=== PATIENT | female | born 1980 | race Caucasian/White ===

== ENCOUNTER 2018-09-17 12:38 | Emergency (ER) | payer OTHER ==
[~2018-09-17] VITALS: Ht 162.6 cm; Wt 66.7 kg
[2018-09-17 12:48] VITALS: BP 130/84; Ht 162.6 cm; Wt 66.7 kg
== END 2018-09-17 13:41 | disposition home or self-care (01) ==
LOC: ED 12:38
DX: R51 Headache (principal); H53.8 Other visual disturbances; R42 Dizziness and giddiness; Z98.890 Other specified postprocedural states

== ENCOUNTER 2019-11-18 16:27 | Emergency (ER) | payer OTHER, SELFPAY ==
[~2019-11-18] VITALS: Ht 162.6 cm; Wt 63.5 kg
[2019-11-18 16:36] VITALS: Ht 162.6 cm; Wt 63.5 kg
[2019-11-18 17:09] VITALS: BP 141/94
== END 2019-11-18 17:09 | disposition home or self-care (01) ==
LOC: ED 16:27
DX: B34.9 Viral infection, unspecified (principal); Z20.828 Contact with and (suspected) exposure to other viral communicable diseases
CPT/HCPCS: U0003-CS